=== PATIENT | female | born 1965 | race African-American/Black ===

== ENCOUNTER → 2016-12-13 | Outpatient (CLI) | payer MEDICARE, OTHER ==
[~2016-12-13] MED LIST: CONTRAST GIVEN MC PRN; IOHEXOL 300 MG/ML 75 ML VIAL IV ONE
[2016-12-13 11:44] LABS: CREATININE 0.7 mg/dL (0.6-1.0); GFR 106.3
--- NOTE | 2016-12-13 15:18 | RAD ---
CT ANGIOGRAM OF THE BRAIN HISTORY: History of headaches, family history of aneurysm TECHNIQUE: Axial CT angiographic images of the head was performed with IV contrast. Coronal sagittal 3-D MIP reformats are performed. 3-D volumetric reformats are performed. PQRS Compliance Statement: One or more of the following individualized dose reduction techniques were utilized for this examination: 1. Automated exposure control 2. Adjustment of the mA and/or kV according to patient size 3. Use of iterative reconstruction technique FINDINGS: CT Angio Head: The bilateral internal carotid artery has a normal course and contour. There is normal patency of the petrous, cavernous, and supraclinoid portions of the internal carotid artery. Mild atherosclerotic calcifications identified in the cavernous and supraclinoid portions of the internal carotid arteries. There is normal bifurcation of the internal carotid artery into the M1 segment of the middle cerebral artery and the A1 segment of the anterior cerebral artery. The M1 segment extends and has a normal course and contour as it forms the M2 segment. The M1 and M2 segments of the middle cerebral artery have a normal patency without evidence of stenosis or significant atherosclerotic disease. The A1 segment forms the A2 segment. There is normal patency of the anterior cerebral artery A1 and A2 segments without evidence of stenosis or significant atherosclerotic disease. There is normal patency of the anterior communicating artery. Posterior Circulation: There is tortuous appearing right vertebral artery joining the left vertebral artery.. Both the right and left vertebral arteries give off normal sized posterior inferior cerebellar arteries (PICAs). The vertebral arteries then join to form the basilar artery which has normal patency, size and contour. The basilar artery gives off the bilateral anterior inferior cerebellar artery (AICAs) and the bilateral superior cerebellar arteries. These have a normal patency, size, and contour. The right posterior communicating arteries is patent. The left posterior communicating artery is not clearly identified There is no evidence of an aneurysm. IMPRESSION: 1. No evidence of a significant focal stenosis of the anterior circulation or posterior circulation. 2. No evidence of an aneurysm.
== END | disposition home or self-care (01) ==
LOC: CT 10:32
PROVIDERS: ATTEND Family Medicine
DX: Z82.49 Family history of ischemic heart disease and other diseases of the circulatory system (principal); Z86.69 Personal history of other diseases of the nervous system and sense organs
CPT/HCPCS: 36415; 70496; 82565; Q9967

== ENCOUNTER → 2021-08-01 | Outpatient (CLI) | payer MEDICAID ==
[~2021-08-01] MED LIST changes: +ALLO300T PO; +AMLO-187 PO; +ASPI-886 PO; +ATOR40TA59 PO; +CLIN-94 PO; +COLC0.6T34 PO; -CONTRAST GIVEN MC PRN; +ERGO2000 PO; +HYDR-2765 PO; +HYDR25TA PO; +INDO50CA15 PO; -IOHEXOL 300 MG/ML 75 ML VIAL IV ONE; +LISI-130 PO; +LOSA-73 PO; +LOSA1TAB19 PO; +METF10007 PO; +METO25TA4 PO; +OMEP40CA7 PO; +OXYC5TAB4 PO; +PROAIR RESPICL90 MCG IH; +SULF1TAB24 PO
[2021-08-01 13:46] LABS: BASO % 1 % (0-3); EOS # 0.3 x10^3/uL (0.0-0.7); EOS % 5 % (0-3); HEMATOCRIT 34.5 % (36.0-47.0); HEMOGLOBIN 11.2 g/dL (12.0-15.5); LYMPH # 1.4 x10^3/uL (1.0-4.8); LYMPH % 23 % (24-48); MEAN CORPUSCULAR HEMOGLOBIN 28 pg (25-35); MEAN CORPUSCULAR HGB CONC 33 g/dL (31-37); MEAN CORPUSCULAR VOLUME 85 fL (79-100); MONO # 0.4 x10^3/uL (0.0-1.1); MONO % 7 % (0-9); NEUT % 64 % (31-73); PLATELET COUNT 252 x10^3/uL (140-400); RED BLOOD COUNT 4.04 x10^6/uL (3.50-5.40); RED CELL DISTRIBUTION WIDTH 15.2 % (11.5-14.5); WHITE BLOOD COUNT 6.3 x10^3/uL (4.0-11.0)
[2021-08-01 13:53] LABS: ALBUMIN 3.4 g/dL (3.4-5.0); CREATININE 1.2 mg/dL (0.6-1.0); POTASSIUM 4.2 mmol/L (3.5-5.1)
[2021-08-01 13:56] LABS: PROTHROMBIN TIME PATIENT 12.7 SEC (11.7-14.0)
--- NOTE | 2021-08-01 14:26 | EKG ---
[facility] [address] [place] [address] Test Date: 2021-08-01 Test Time: 14:26:19 Pat Name: PAVAN FRAZIER Department: Room: Gender: F Last Picker: KAMRON : [id number] Requested By: CARMELINA MASTERS Order Number: [id number] Reading MD: Carlos Jacobs Measurements Intervals [place] Rate: 78 P: 158 CA: 214 QRS: 17 QRSD: 86 T: 44 QT: 368 QTc: 423 Interpretive Statements SINUS RHYTHM LOW LIMB LEAD VOLTAGE Electronically Signed On 08-02-2021 21:55:31 RN IV THERAPY by Carlos Jacobs
--- NOTE | 2021-08-01 15:39 | RAD ---
AP and Lateral Views of the Chest 08/01/2021 2:32 PM Indication: Reason: PRE-OP EVAL HIP SX ON 08/15/21 / Comparison: Chest radiograph May 02, 2009 Findings: Multiple calcified mediastinal hilar lymph nodes noted, similar to comparison study. There is no focal consolidation or infiltrate identified. The heart size is normal. There is no evidence of pneumothorax or pleural effusion. No acute osseous abnormalities are identified. Impression: No evidence of acute cardiopulmonary process or change from comparison study. Electronically signed by: Oneil Reyes MD (08/01/2021 3:37 PM) [id number]
[2021-08-02 05:11] LABS: HEMOGLOBIN A1C 6.7 % (4.8-5.6)
== END ==
LOC: SURGPAT 13:04
PROVIDERS: ATTEND Orthopaedic Surgery Sports Medicine
DX: Z01.818 Encounter for other preprocedural examination (principal); I89.8 Other specified noninfective disorders of lymphatic vessels and lymph nodes
CPT/HCPCS: 36415; 71046; 80048; 82040; 82306; 83036; 85025; 85610; 85651; 85730; 87641; 93005

== ENCOUNTER → 2021-08-14 | Outpatient (CLI) | payer MEDICAID ==
[2021-08-14 11:06] LABS: BILIRUBIN,URINE NEGATIVE (NEG); CLARITY,URINE CLEAR; COLOR,URINE YELLOW; NITRITE,URINE NEGATIVE (NEG); PH,URINE 6.5 (<5.0-8.0); PROTEIN,URINE NEGATIVE (NEG-TRACE); UROBILINOGEN,URINE 0.2 mg/dL (0.2 mg/dL)
[2021-08-14 11:25] LABS: BACTERIA,URINE 0 /HPF (0-FEW); RBC,URINE 0 /HPF (0-2); WBC,URINE OCC /HPF (0-4)
== END ==
LOC: LAB 10:21
PROVIDERS: ATTEND Orthopaedic Surgery Sports Medicine
DX: Z01.812 Encounter for preprocedural laboratory examination (principal); Z20.822 Contact with and (suspected) exposure to COVID-19; M16.12 Unilateral primary osteoarthritis, left hip
CPT/HCPCS: 81001; U0003; U0005